=== PATIENT | female | born 1970 | race Caucasian/White ===

== ENCOUNTER → 2023-07-04 | Emergency (ER) | payer BC, MEDICAID ==
[~2023-07-04] VITALS: Ht 152.4 cm; Wt 103.8 kg
[~2023-07-04] MED LIST: ALPR-624 PO; ESCI10TA PO; HYDR-4353 PO; LAMO200T2 PO; ONDA8TAB6 PO; OXYC-138 PO; PROC5TAB56 PO; SUMA25TA35 PO; TRAZ-256 PO; fentaNYL/PF 50MCG/1 ML 2ML syringe IV ONE; ketorolac trometh inj. 60 MG/2 ML VIAL IM ONE; ketorolac tromethamine 15mg/ml inj. IV ONE; normal saline 1000ml 1,000 ML IV ONE; oxyCODONE/APAP 10/325mg tablet PO ONE; propofol 10mg/ml 20ml vial IV ONE
[2023-07-04 10:51] LABS: BASOPHILS # (AUTO) 0.1 X10'3 (0-0.2); BASOPHILS % (AUTO) 0.9 % (0-1); EOSINOPHILS # (AUTO) 0.1 X10'3 (0-0.9); EOSINOPHILS % (AUTO) 1.6 % (0-6); HEMATOCRIT 41.7 % (35.0-45.0); HEMOGLOBIN 14.1 g/dl (12.0-16.0); LYMPHOCYTES # (AUTO) 1.8 X10'3 (1.1-4.8); LYMPHOCYTES % (AUTO) 30.9 % (21-51); MEAN CORPUSCULAR HEMOGLOBIN 29.9 PG (27.0-31.0); MEAN CORPUSCULAR HGB CONC 33.8 g/dL (33.0-36.5); MEAN CORPUSCULAR VOLUME 88.7 FL (78-98); MEAN PLATELET VOLUME 7.5 FL (7.4-10.4); MONOCYTES # (AUTO) 0.4 X10'3 (0-0.9); MONOCYTES % (AUTO) 7.6 % (2-12); NEUTROPHILS # (AUTO) 3.4 X10'3 (1.8-7.7); PLATELET COUNT 273 X10'3 (140-440); RED CELL DISTRIBUTION WIDTH 12.5 % (11.5-14.5); WHITE BLOOD COUNT 5.8 X10'3 (4.5-11.0)
[2023-07-04 13:52] VITALS: BP 148/93; PULSE 99; RESP 18; TEMP 98.4; O2SAT 96
== END | disposition home or self-care (01) ==
LOC: ER 09:36
DX: S82.891A Other fracture of right lower leg, initial encounter for closed fracture (principal); F41.9 Anxiety disorder, unspecified; F32.9 Major depressive disorder, single episode, unspecified; Z79.899 Other long term (current) drug therapy; Z88.0 Allergy status to penicillin; Z88.8 Allergy status to other drugs, medicaments and biological substances; W01.0XXA Fall on same level from slipping, tripping and stumbling without subsequent striking against object, initial encounter; Y93.89 Activity, other specified; Y92.89 Other specified places as the place of occurrence of the external cause; Y99.8 Other external cause status
CPT/HCPCS: 27788; 36415; 73600; 73700; 85025; 96374; 96375; 96376; 99152; 99285; J1885; J2704; J3010; J7030; 94760; A4615; A4620; A6446; A6449